=== PATIENT | male | born 1955 | race Caucasian/White ===

== ENCOUNTER 2021-11-15 07:21 | Inpatient (IN) | payer MEDICARE, MEDICAID ==
[~2021-11-15] VITALS: Ht 180.3 cm; Wt 82.8 kg
[~2021-11-15 07:21] MED LIST: LACO200T PO
[2021-11-15] MEDS ORDERED: FAMOTIDINE (10MG/ML) 2ML VL IV ONE (08:15)
[2021-11-15] MEDS ORDERED: ONDANSETRON HCL 4 MG/2 ML VIAL IV ONE (08:15)
[2021-11-15] MEDS ORDERED: SODIUM CHLORIDE 0.9% 1,000 ML IV ONE (08:15)
[2021-11-15 08:46] LABS: Basophils # (auto) 0 10 ^3/uL (0-0.2); Basophils % (auto) 0.4 % (0.0-2.0); Eosinophils # (auto) 0.1 10 ^3/uL (0-0.8); Eosinophils % (auto) 1.6 % (0.0-7.0); Hematocrit 45.1 % (41.0-53.0); Hemoglobin 14.4 g/dL (13.5-17.5); Lymphocytes # (auto) 1.2 10 ^3/uL (0.4-5.4); Lymphocytes % (auto) 28.3 % (10.0-50.0); Mean Corpuscular Hemoglobin 29.4 pg (28.0-32.0); Mean Corpuscular Volume 91.8 fL (80.0-100.0); Monocytes # (auto) 0.4 10 ^3/uL (0-1.3); Monocytes % (auto) 8.9 % (0.0-12.0); Neutrophils # (auto) 2.5 10 ^3/uL (1.6-8.6); Neutrophils % (auto) 60.8 % (37.0-80.0); Nucleated Red Blood Cells % 0.1 %; Red Blood Cells 4.91 10^6/uL (4.5-5.90); Red Cell Distribution Width 14.1 % (11.8-14.3); White Blood Cell 4.1 10^3/uL (4.4-10.8)
[2021-11-15 08:49] LABS: Urine Bacteria NONE SEEN /hpf (None Seen); Urine Blood Negative /uL (Negative); Urine Mucus FEW (None Seen); Urine Specific Gravity 1.036 (1.001-1.035); Urine Sperm PRESENT /hpf (None Seen); Urine WBC 3 /hpf (0 - 3)
[2021-11-15 10:09] LABS: Albumin 3.7 g/dL (3.4-5.0); BUN/Creatinine Ratio 20.4; Calcium 8.3 mg/dL (8.5-10.1); Magnesium 2.6 mg/dL (1.6-2.6); Potassium 4.2 mmol/L (3.5-5.1)
[2021-11-15] MEDS ORDERED: MORPHINE SULFATE INJECTION 2 MG/ML SYRG IV PRN (10:45)
[2021-11-15] MEDS ORDERED: HYDROcodone-ACET 5/325MG TAB PO PRN (10:45)
[2021-11-15] MEDS ORDERED: LORazepam 0.5 MG TAB PO PRN (10:45)
[2021-11-15] MEDS ORDERED: HYDROmorphone HCL 2 MG/ML VL IV PRN (10:45)
[2021-11-15] MEDS ORDERED: NITROGLYCERIN 0.4 MG SL TAB SL PRN (10:45)
[2021-11-15] MEDS ORDERED: ONDANSETRON HCL 4 MG/2 ML VIAL IV PRN (10:45)
[2021-11-15] MEDS ORDERED: ACETAMINOPHEN 325 MG TAB PO PRN (10:45)
[2021-11-15 10:58] LABS: Bilirubin, Total 0.3 mg/dL (0.2-1.0)
[2021-11-15] MEDS: SODIUM CHLORIDE 0.9% 1,000 ML IV SCH (11:24)
[2021-11-15 13:40] VITALS: BP 151/74
[2021-11-15] MEDS ORDERED: GASTROGRAFIN 120 ML SOL ONE (14:11)
[2021-11-15 17:00] VITALS: BP 154/78
[2021-11-15] MEDS ORDERED: CARB200T4 PO (17:51)
[2021-11-15] MEDS ORDERED: LEVE500T3 PO (17:51)
[2021-11-15] MEDS ORDERED: LACO200T PO (17:51)
[2021-11-15 22:00] VITALS: BP 142/71
[2021-11-15] MEDS ORDERED: PATIENTS OWN MEDICATION PO SCH (22:00)
[2021-11-15] MEDS: LACOSAMIDE 50 MG TAB PO SCH (22:00)
[2021-11-15] MEDS: carBAMazepine 200 MG TAB PO SCH (22:07)
[2021-11-15] MEDS: levETIRAcetam 500 MG TAB PO SCH (22:07)
[2021-11-16] VITALS (8 sets, daily range): BP systolic 125–154; BP diastolic 62–80
[2021-11-16] MEDS: SODIUM CHLORIDE 0.9% 1,000 ML IV SCH ×2 (01:21→17:03)
[2021-11-16] MEDS: levETIRAcetam 500 MG TAB PO SCH ×2 (09:28→21:19)
[2021-11-16] MEDS: carBAMazepine 200 MG TAB PO SCH ×2 (09:28→21:19)
[2021-11-16] MEDS: LACOSAMIDE 50 MG TAB PO SCH ×2 (09:28→20:58)
[2021-11-17 05:30] VITALS: BP 131/74
[2021-11-17 09:00] VITALS: BP 136/63
[2021-11-17] MEDS: LACOSAMIDE 50 MG TAB PO SCH ×2 (09:07→20:00)
[2021-11-17] MEDS: SODIUM CHLORIDE 0.9% 1,000 ML IV SCH (09:14)
[2021-11-17] MEDS: levETIRAcetam 500 MG TAB PO SCH ×2 (11:33→22:19)
[2021-11-17] MEDS: carBAMazepine 200 MG TAB PO SCH ×2 (11:33→22:20)
[2021-11-17 13:00] VITALS: BP 134/65
[2021-11-17 17:00] VITALS: BP 136/70
[2021-11-17 22:00] VITALS: BP 123/64
[2021-11-18 05:00] VITALS: BP 117/65
[2021-11-18] MEDS: SODIUM CHLORIDE 0.9% 1,000 ML IV SCH (05:25)
[2021-11-18] MEDS: LACOSAMIDE 50 MG TAB PO SCH (08:00)
[2021-11-18] MEDS: levETIRAcetam 500 MG TAB PO SCH (08:36)
[2021-11-18] MEDS: carBAMazepine 200 MG TAB PO SCH (08:36)
[2021-11-18 08:53] LABS: Basophils # (auto) 0 10 ^3/uL (0-0.2); Basophils % (auto) 0.7 % (0.0-2.0); Eosinophils # (auto) 0.1 10 ^3/uL (0-0.8); Hematocrit 37.9 % (41.0-53.0); Hemoglobin 12.9 g/dL (13.5-17.5); Lymphocytes # (auto) 1.2 10 ^3/uL (0.4-5.4); Lymphocytes % (auto) 33.5 % (10.0-50.0); Mean Corpuscular Hemoglobin 30.8 pg (28.0-32.0); Mean Corpuscular Volume 90.6 fL (80.0-100.0); Monocytes # (auto) 0.3 10 ^3/uL (0-1.3); Monocytes % (auto) 7.6 % (0.0-12.0); Neutrophils % (auto) 56.2 % (37.0-80.0); Nucleated Red Blood Cells % 0.1 %; Red Blood Cells 4.19 10^6/uL (4.5-5.90); Red Cell Distribution Width 14.1 % (11.8-14.3); White Blood Cell 3.6 10^3/uL (4.4-10.8)
[2021-11-18 09:00] VITALS: BP 121/71
[2021-11-18 09:08] LABS: Potassium 4.6 mmol/L (3.5-5.1)
[2021-11-18 09:14] LABS: BUN/Creatinine Ratio 12.7; Calcium 7.9 mg/dL (8.5-10.1)
== END 2021-11-18 11:40 | disposition home or self-care (01) | DRG 392 ==
LOC: ER 07:21 → OVERFLOW 10:43 → CENTRAL 13:49
PROVIDERS: ADMIT Family Medicine; ATTEND Internal Medicine Pulmonary Disease
DX: R10.84 Generalized abdominal pain (principal); G40.909 Epilepsy, unspecified, not intractable, without status epilepticus; E66.9 Obesity, unspecified; Z79.899 Other long term (current) drug therapy; Z20.822 Contact with and (suspected) exposure to COVID-19; Z88.0 Allergy status to penicillin; Z68.25 Body mass index [BMI] 25.0-25.9, adult
CPT/HCPCS: 36415; 74176; 74250; 80048; 80053; 81001; 83605; 83690; 83735; 85025; 87426; 93005; 96361; 96374; 96375; G0378; J2405; J3490